=== PATIENT | female | born 1990 | race Caucasian/White ===

== ENCOUNTER 2017-07-11 19:16 | Emergency (ER) | payer OTHER ==
[2017-07-11 19:37] VITALS: BP 127/81; PULSE 85; RESP 16; TEMP 98.5
--- NOTE | 2017-07-11 20:27 | ED ---
General Adult HPI - General Chief complaint: Burn/Smoke Inhalation Stated complaint: Burn on hand and face Time Seen by Provider: 07/11/17 19:44 Source: patient, RN notes reviewed Mode of arrival: ambulatory Limitations: no limitations - History of Present Illness Initial comments: 26-year-old female presents to the emergency department for a chief complaint of burn on right hand and face since last night. Patient states she was at work at [email or web address] when the grease burned her hand and splashed on her face. Patient states blisters started to form today. Patient denies any spreading redness or signs of infection. Patient denies any other freire or injuries. Patient states her tetanus is up-to-date in the past 5 years. Patient has no other complaints at this time including shortness of breath, chest pain, abdominal pain, nausea or vomiting, headache, or visual changes. - Related Data Previous Rx's Medication Instructions Recorded SILVER sulfADIAZINE CREAM 1 applic TOPICAL DAILY 14 Days 07/11/17 [Silvadene Cream] gram Allergies Allergy/AdvReac Type Severity Reaction Status Date / Time No Known Allergies Allergy Verified 07/11/17 19:37 Review of Systems ROS Statement: Those systems with pertinent positive or pertinent negative responses have been documented in the HPI. ROS Other: All systems not noted in ROS Statement are negative. Past Medical History Past Medical History: No Reported History History of Any Multi-Drug Resistant Organisms: None Reported Past Surgical History: No Surgical Hx Reported Past Psychological History: No Psychological Hx Reported Smoking Status: Never smoker Past Alcohol Use History: None Reported Past Drug Use History: None Reported General Exam Limitations: no limitations General appearance: alert, in no apparent distress Neck exam: Present: normal inspection. Absent: tenderness, meningismus, lymphadenopathy Respiratory exam: Present: normal lung sounds bilaterally. Absent: respiratory distress, wheezes, rales, rhonchi, stridor Cardiovascular Exam: Present: regular rate, normal rhythm, normal heart sounds. Absent: systolic murmur, diastolic murmur, rubs, gallop, clicks Skin exam: Present: other (There is a 4 cm x 3 cm erythematous burn on the dorsal aspect of the right hand less than 1% of the body. There is a 2cm x 2cm intact blister over the burn. Patient also has 2 small 1 cm x 1 cm splash seymour on the face (right cheek and chin) with small intact blister over each. No signs of infection, cellulitis, or spreading redness.) Course Vital Signs 07/11/17 19:33 Temperature 98.5 F Pulse Rate 85 Respiratory 16 Rate Blood Pressure 127/81 O2 Sat by Pulse 100 Oximetry Medical Decision Making - Medical Decision Making 26-year-old female presents to the emergency department for a chief complaint of burn on the posterior right hand. Patient was burned with grease yesterday. Patient also has 2 small/hives on her face one on the right cheek and one on the chin with small blisters. No signs of infection. Tetanus up-to-date Wound was debrided and nonviable tissue was removed. It was then cleaned. Silvadene nitrate was applied and patients hand was wrapped. The blisters on the face were also debrided and silvadene was applied. Patient is to monitor for infection and return to the ED if she notices any or any worsening symptoms. She was educated to apply Silvadene daily and to keep the wounds moist to prevent scarring. Disposition Clinical Impression: Burn Disposition: HOME SELF-CARE Condition: Good Instructions: Second Degree Burn (ED) Additional Instructions: Please keep the affected areas on the hand and face moist with Silvadene. Keep the hand wrapped during the day and make sure to clean the area at least once a day. Return to the emergency department if you notice any worsening symptoms or signs of infection. Otherwise follow-up with primary care in 1-2 days. Prescriptions: SILVER sulfADIAZINE CREAM [Silvadene Cream] 1 applic TOPICAL DAILY 14 Days gram Is patient prescribed a controlled substance at d/c from ED?: No Referrals: Edd Cooper MD [STAFF PHYSICIAN] - 1-2 days Time of Disposition: 20:25
== END 2017-07-11 20:40 | disposition home or self-care (01) ==
LOC: EC 19:16
DX: T23.261A Burn of second degree of back of right hand, initial encounter (principal); T20.26XA Burn of second degree of forehead and cheek, initial encounter; T20.23XA Burn of second degree of chin, initial encounter; T31.0 Burns involving less than 10% of body surface; X19.XXXA Contact with other heat and hot substances, initial encounter; Y92.69 Other specified industrial and construction area as the place of occurrence of the external cause; Y99.0 Civilian activity done for income or pay
CPT/HCPCS: 16020; 99283

== ENCOUNTER 2018-06-10 13:42 | Emergency (ER) | payer BC, OTHER ==
[2018-06-10 13:47] VITALS: RESP 18
[2018-06-10] MEDS ORDERED: SODIUM CHLORIDE 0.9% 2,000 ML IV STA (14:02)
[2018-06-10] MEDS ORDERED: ONDANSETRON 4 MG/2 ML VIAL IVP STA (14:02)
[2018-06-10] MEDS ORDERED: diphenhydrAMINE 50 MG/ML 1 ML VIAL IVP STA (14:02)
--- NOTE | 2018-06-10 14:47 | ED ---
Nausea/Vomiting/Diarrhea HPI - General Chief complaint: Nausea/Vomiting/Diarrhea Stated complaint: vomiting/7.5 wks preg Time Seen by Provider: 06/10/18 13:51 Source: patient, RN notes reviewed Mode of arrival: ambulatory Limitations: no limitations - History of Present Illness Initial comments: 27-year-old female presents emergency Department chief complaint of nausea vomiting early . Patient states that she was recently seen at [facility] and received a bag of IV fluids and which she felt better at that time. Patient was not discharged with pain medications or had any recommendations for nausea medication. She has not contacted a [employer] at this time. She is A0 and currently 7 weeks . Patient denies any vagi nal bleeding or vaginal discharge. She has no lower abdominal discomfort. Denies chest pain no fevers or chills. - Related Data Previous Rx's Medication Instructions Recorded SILVER sulfADIAZINE CREAM 1 applic TOPICAL DAILY 14 Days 07/11/17 [Silvadene Cream] gram Ondansetron Odt [Zofran Odt] 4 mg PO Q8HR PRN #14 tab 06/10/18 Allergies Allergy/AdvReac Type Severity Reaction Status Date / Time No Known Allergies Allergy Verified 07/11/17 19:37 Review of Systems ROS Statement: Those systems with pertinent positive or pertinent negative responses have been documented in the HPI. ROS Other: All systems not noted in ROS Statement are negative. Past Medical History Past Medical History: No Reported History History of Any Multi-Drug Resistant Organisms: None Reported Past Surgical History: No Surgical Hx Reported Past Psychological History: No Psychological Hx Reported Smoking Status: Never smoker Past Alcohol Use History: None Reported Past Drug Use History: None Reported General Exam Limitations: no limitations General appearance: alert, in no apparent distress Head exam: Present: atraumatic, normocephalic, normal inspection Eye exam: Present: normal appearance, PERRL, EOMI. Absent: scleral icterus, conjunctival injection, periorbital swelling ENT exam: Present: normal exam, mucous membranes moist Neck exam: Present: normal inspection, full ROM. Absent: tenderness, m eningismus, lymphadenopathy Respiratory exam: Present: normal lung sounds bilaterally. Absent: respiratory distress, wheezes, rales, rhonchi, stridor Cardiovascular Exam: Present: regular rate, normal rhythm, normal heart sounds. Absent: systolic murmur, diastolic murmur, rubs, gallop, clicks GI/Abdominal exam: Present: soft, normal bowel sounds. Absent: distended, tenderness, guarding, rebound, rigid Back exam: Absent: CVA tenderness (R), CVA tenderness (L) Skin exam: Present: warm, dry, intact, normal color. Absent: rash Course Vital Signs 06/10/18 06/10/18 13:44 16:06 Temperature 97.6 F Pulse Rate 96 76 Respiratory 18 18 Rate Blood Pressure 105/68 96/53 O2 Sat by Pulse 98 100 Oximetry Medical Decision Making - Medical Decision Making 27-year-old female presented for nausea vomiting . Patient found to be dehydrated though she was given 2 L of fluid and feels greatly improved. Patient is mildly acidotic this is related from dehydration. Patient is advised to follow-up with [facility]. Patient advised to use [id number] B6 and Unisom. understands risk taking Zofran and requests at this time. Patient will be discharged. Return parameters discussed. - Lab Data Result diagrams: 06/10/18 14:15 06/10/18 14:15 Lab Results 06/10/18 06/10/18 06/10/18 Range/Units 14:15 14:15 16:18 WBC 14.0 H (3.8-10.6) k/uL RBC 4.84 (3.80-5.40) m/uL Hgb 15.2 (11.4-16.0) gm/dL Hct 41.9 (34.0-46.0) % MCV 86.6 (80.0-100.0) fL MCH 31.3 (25.0-35.0) pg MCHC 36.1 (31.0-37.0) g/dL RDW 11.5 (11.5-15.5) % Plt Count 379 (150-450) k/uL Neutrophils % 87 % Lymphocytes % 8 % Monocytes % 4 % Eosinophils % 0 % Basophils % 1 % Neutrophils # 12.1 H (1.3-7.7) k/uL Lymphocytes # 1.2 (1.0-4.8) k/uL Monocytes # 0.5 (0-1.0) k/uL Eosinophils # 0.1 (0-0.7) k/uL Basophils # 0.1 (0-0.2) k/uL Sodium 138 (137-145) mmol/L Potassium 4.1 (3.5-5.1) mmol/L Chloride 103 (98-107) mmol/L Carbon Dioxide 19 L (22-30) mmol/L Anion Gap 16 mmol/L BUN 13 (7-17) mg/dL Creatinine 0.55 (0.52-1.04) mg/dL Est GFR (CKD-EPI)AfAm >90 (>60 ml/min/1.73 sqM) Est GFR (CKD-EPI)NonAf >90 (>60 ml/min/1.73 sqM) Glucose 98 (74-99) mg/dL Calcium 12.0 H (8.4-10.2) mg/dL Magnesium 1.6 (1.6-2.3) mg/dL Total Bilirubin 1.5 H (0.2-1.3) mg/dL AST 18 (14-36) U/L ALT 20 (9-52) U/L Alkaline Phosphatase 56 (38-126) U/L Total Protein 8.6 H (6.3-8.2) g/dL Albumin 5.4 H (3.5-5.0) g/dL Lipase 43 (23-300) U/L HCG, Quant 07504.0 mIU/mL Urine Color Yellow Urine Appearance Cloudy H (Clear) Urine pH 5.5 (5.0-8.0) Ur Specific [place] 1.029 (1.001-1.035) Urine Protein 1+ H (Negative) Urine Glucose (UA) Negative (Negative) Urine Ketones 4+ H (Negative) Urine Blood Negative (Negative) Urine Nitrite Negative (Negative) Urine Bilirubin Negative (Negative) Urine Urobilinogen <2.0 (<2.0) mg/dL Ur Leukocyte Esterase Negative (Negative) Urine RBC 2 (0-5) /hpf Urine WBC 6 H (0-5) /hpf Ur Squamous Epith Cells 1 (0-4) /hpf Urine Mucus Many H (None) /hpf Disposition Clinical Impression: Hyperemesis gravidarum, Dehydration, Disposition: HOME SELF-CARE Condition: Stable Instructions (If sedation given, give patient instructions): Nausea and Vomiting in (ED) Additional Instructions: Please return to the Emergency Department if symptoms worsen or any other concerns. Prescriptions: Ondansetron Odt [Zofran Odt] 4 mg PO Q8HR PRN #14 tab PRN Reason: Nausea Is patient prescribed a controlled substance at d/c from ED?: No Referrals: None,Stated [Primary Care Provider] - 1-2 days Time of Disposition: 16:44
[2018-06-10 15:15] LABS: ALT 20 U/L (9-52); AST 18 U/L (14-36); Albumin 5.4 g/dL (3.5-5.0); Alkaline Phosphatase 56 U/L (38-126); Anion Gap 16 mmol/L; Blood Urea Nitrogen 13 mg/dL (7-17); Carbon Dioxide 19 mmol/L (22-30); Chloride 103 mmol/L (98-107); Glucose 98 mg/dL (74-99); Lipase 43 U/L (23-300); Magnesium 1.6 mg/dL (1.6-2.3); Potassium 4.1 mmol/L (3.5-5.1); Sodium 138 mmol/L (137-145); Total Bilirubin 1.5 mg/dL (0.2-1.3); Total Protein 8.6 g/dL (6.3-8.2)
[2018-06-10 15:22] LABS: Basophils # (A) 0.1 k/uL (0-0.2); Basophils % (A) 1 %; Eosinophils # (A) 0.1 k/uL (0-0.7); Eosinophils % (A) 0 %; HCT 41.9 % (34.0-46.0); HGB 15.2 gm/dL (11.4-16.0); Lymphocytes # (A) 1.2 k/uL (1.0-4.8); Lymphocytes % (A) 8 %; MCH 31.3 pg (25.0-35.0); MCHC 36.1 g/dL (31.0-37.0); MCV 86.6 fL (80.0-100.0); Monocytes # (A) 0.5 k/uL (0-1.0); Monocytes % (A) 4 %; Neutrophils # (A) 12.1 k/uL (1.3-7.7); Neutrophils % (A) 87 %; Platelet Count 379 k/uL (150-450); RBC 4.84 m/uL (3.80-5.40); RDW 11.5 % (11.5-15.5)
[2018-06-10 16:31] LABS: Appearance,Urine Cloudy (Clear); Bilirubin,Urine Negative (Negative); Blood,Urine Negative (Negative); Color,Urine Yellow; Glucose,Urine (UA) Negative (Negative); Ketones,Urine 4+ (Negative); Leukocyte Esterase,Urine Negative (Negative); Mucus,Urine Many /hpf; Nitrite,Urine Negative (Negative); PH, Urine 5.5 (5.0-8.0); Protein,Urine 1+ (Negative); RBC,Urine 2 /hpf (0-5); Specific Gravity,Urine 1.029 (1.001-1.035); Squamous Epithelial Cell,Urine 1 /hpf (0-4); Urobilinogen,Urine <2.0 mg/dL (<2.0); WBC,Urine 6 /hpf (0-5)
[2018-06-10] MEDS ORDERED: ONDANSETRON 4 MG ODT STARTER PACK 2 TAB BTL PO STA (16:43)
[2018-06-10 17:03] VITALS: BP 103/59; PULSE 69; TEMP 97.8
== END 2018-06-10 17:03 | disposition home or self-care (01) ==
LOC: EC 13:42
DX: O21.1 Hyperemesis gravidarum with metabolic disturbance (principal); Z3A.01 Less than 8 weeks gestation of pregnancy
CPT/HCPCS: 36415; 80053; 83690; 83735; 85025; 81001; 84702; 99284; 96374; 96375; 96361 ×2; J1200; J2405; S0119

== ENCOUNTER 2018-06-14 16:21 | Emergency (ER) | payer BC ==
[2018-06-14 16:43] VITALS: TEMP 98.9
[2018-06-14] MEDS ORDERED: SODIUM CHLORIDE 0.9% 1,000 ML IV STA ×3 (16:47→18:28)
[2018-06-14] MEDS ORDERED: diphenhydrAMINE 50 MG/ML 1 ML VIAL IVP STA (16:47)
[2018-06-14] MEDS ORDERED: SODIUM CHLORIDE 0.9% 500 ML 500 ML IV STA (16:47)
--- NOTE | 2018-06-14 16:47 | ED ---
Nausea/Vomiting/Diarrhea HPI - General Chief complaint: Nausea/Vomiting/Diarrhea Stated complaint: Dehydration Source: patient, family, RN notes reviewed, old records reviewed Mode of arrival: wheelchair Limitations: no limitations - Related Data Previous Rx's Medication Instructions Recorded Ondansetron Odt [Zofran Odt] 4 mg PO Q8HR PRN #14 tab 06/10/18 Trimethobenzamide [Tigan] 300 mg RECTAL TID #90 capsule 06/14/18 Allergies Allergy/AdvReac Type Severity Reaction Status Date / Time No Known Allergies Allergy Verified 06/14/18 16:50 Review of Systems ROS Statement: Those systems with pertinent positive or pertinent negative responses have been documented in the HPI. ROS Other: All systems not noted in ROS Statement are negative. Past Medical History Past Medical History: No Reported History History of Any Multi-Drug Resistant Organisms: None Reported Past Surgical History: No Surgical Hx Reported Past Psychological History: No Psychological Hx Reported Smoking Status: Never smoker Past Alcohol Use History: None Reported Past Drug Use History: None Reported General Exam Limitations: no limitations General appearance: alert, in no apparent distress Head exam: Present: atraumatic, normocephalic, normal inspection Eye exam: Present: normal appearance, PERRL, EOMI. Absent: scleral icterus, conjunctival injection, periorbital swelling ENT exam: Present: normal exam, mucous membranes moist Neck exam: Present: normal inspection. Absent: tenderness, meningismus, lymphadenopathy Respiratory exam: Present: normal lung sounds bilaterally. Absent: respiratory distress, wheezes, rales, rhonchi, stridor Cardiovascular Exam: Present: regular rate, normal rhythm, normal heart sounds. Absent: systolic murmur, diastolic murmur, rubs, gallop, clicks GI/Abdominal exam: Present: soft, normal bowel sounds. Absent: distended, tenderness, guarding, rebound, rigid Extremities exam: Present: normal inspection, full ROM, normal capillary refill. Absent: tenderness, pedal edema, joint swelling, calf tenderness Back exam: Present: normal inspection Neurological exam: Present: alert, oriented X3, CN II-XII intact Psychiatric exam: Present: normal affect, normal mood Skin exam: Present: warm, dry, intact, normal color. Absent: rash Course Vital Signs 06/14/18 06/14/18 16:40 20:26 Temperature 98.9 F Pulse Rate 89 76 Respiratory 18 16 Rate Blood Pressure 101/70 104/66 O2 Sat by Pulse 100 97 Oximetry - Reevaluation(s) Reevaluation #1: 06/14/18 20:34 Medical record reviewed Reevaluation #2: 06/14/18 20:[address] Martinez, patient okay to follow up in office as directed, we'll continue outpatient treatment of hyperemesis Reevaluation #3: 06/14/18 20:35 Patient mildly feeling improved Medical Decision Making - Medical Decision Making 27 female the ER with hyperemesis gravidarum. Patient will be placed on Tigan per direction of Dr. Chou, follow-up with Dr. parra as directed - Lab Data Result diagrams: 06/14/18 17:11 06/14/18 17:11 Lab Results 06/14/18 06/14/18 06/14/18 Range/Units 17:11 17:11 17:11 WBC 13.8 H (3.8-10.6) k/uL RBC 4.70 (3.80-5.40) m/uL Hgb 14.5 (11.4-16.0) gm/dL Hct 40.2 (34.0-46.0) % MCV 85.5 (80.0-100.0) fL MCH 30.8 (25.0-35.0) pg MCHC 36.1 (31.0-37.0) g/dL RDW 11.4 L (11.5-15.5) % Plt Count 395 (150-450) k/uL Neutrophils % 85 % Lymphocytes % 9 % Monocytes % 4 % Eosinophils % 1 % Basophils % 1 % Neutrophils # 11.7 H (1.3-7.7) k/uL Lymphocytes # 1.2 (1.0-4.8) k/uL Monocytes # 0.5 (0-1.0) k/uL Eosinophils # 0.1 (0-0.7) k/uL Basophils # 0.1 (0-0.2) k/uL Hyperchromasia Slight Sodium 137 (137-145) mmol/L Potassium 4.1 (3.5-5.1) mmol/L Chloride 101 (98-107) mmol/L Carbon Dioxide 19 L (22-30) mmol/L Anion Gap 17 mmol/L BUN 11 (7-17) mg/dL Creatinine 0.56 (0.52-1.04) mg/dL Est GFR (CKD-EPI)AfAm >90 (>60 ml/min/1.73 sqM) Est GFR (CKD-EPI)NonAf >90 (>60 ml/min/1.73 sqM) Glucose 91 (74-99) mg/dL Calcium 12.3 H (8.4-10.2) mg/dL Phosphorus 2.6 (2.5-4.5) mg/dL Magnesium 1.7 (1.6-2.3) mg/dL Total Bilirubin 1.5 H (0.2-1.3) mg/dL AST 16 (14-36) U/L ALT 24 (9-52) U/L Alkaline Phosphatase 57 (38-126) U/L Total Protein 8.6 H (6.3-8.2) g/dL Albumin 5.4 H (3.5-5.0) g/dL Lipase 50 (23-300) U/L HCG, Qual Detected Urine Color Urine Appearance (Clear) Urine pH (5.0-8.0) Ur Specific [place] (1.001-1.035) Urine Protein (Negative) Urine Glucose (UA) (Negative) Urine Ketones (Negative) Urine Blood (Negative) Urine Nitrite (Negative) Urine Bilirubin (Negative) Urine Urobilinogen (<2.0) mg/dL Ur Leukocyte Esterase (Negative) Urine RBC (0-5) /hpf Urine WBC (0-5) /hpf Ur Squamous Epith Cells (0-4) /hpf Hyaline Casts (0-2) /lpf Urine Mucus (None) /hpf 06/14/18 Range/Units 19:23 WBC (3.8-10.6) k/uL RBC (3.80-5.40) m/uL Hgb (11.4-16.0) gm/dL Hct (34.0-46.0) % MCV (80.0-100.0) fL MCH (25.0-35.0) pg MCHC (31.0-37.0) g/dL RDW (11.5-15.5) % Plt Count (150-450) k/uL Neutrophils % % Lymphocytes % % Monocytes % % Eosinophils % % Basophils % % Neutrophils # (1.3-7.7) k/uL Lymphocytes # (1.0-4.8) k/uL Monocytes # (0-1.0) k/uL Eosinophils # (0-0.7) k/uL Basophils # (0-0.2) k/uL Hyperchromasia Sodium (137-145) mmol/L Potassium (3.5-5.1) mmol/L Chloride (98-107) mmol/L Carbon Dioxide (22-30) mmol/L Anion Gap mmol/L BUN (7-17) mg/dL Creatinine (0.52-1.04) mg/dL Est GFR (CKD-EPI)AfAm (>60 ml/min/1.73 sqM) Est GFR (CKD-EPI)NonAf (>60 ml/min/1.73 sqM) Glucose (74-99) mg/dL Calcium (8.4-10.2) mg/dL Phosphorus (2.5-4.5) mg/dL Magnesium (1.6-2.3) mg/dL Total Bilirubin (0.2-1.3) mg/dL AST (14-36) U/L ALT (9-52) U/L Alkaline Phosphatase (38-126) U/L Total Protein (6.3-8.2) g/dL Albumin (3.5-5.0) g/dL Lipase (23-300) U/L HCG, Qual Urine Color Yellow Urine Appearance Clear (Clear) Urine pH 5.5 (5.0-8.0) Ur Specific [place] 1.031 (1.001-1.035) Urine Protein 1+ H (Negative) Urine Glucose (UA) Negative (Negative) Urine Ketones 4+ H (Negative) Urine Blood Negative (Negative) Urine Nitrite Negative (Negative) Urine Bilirubin Negative (Negative) Urine Urobilinogen <2.0 (<2.0) mg/dL Ur Leukocyte Esterase Small H (Negative) Urine RBC 2 (0-5) /hpf Urine WBC 3 (0-5) /hpf Ur Squamous Epith Cells 4 (0-4) /hpf Hyaline Casts 3 H (0-2) /lpf Urine Mucus Few H (None) /hpf Disposition Clinical Impression: Hyperemesis gravidarum Disposition: HOME SELF-CARE Condition: Good Instructions (If sedation given, give patient instructions): Hyperemesis Gravidarum (ED) Prescriptions: Trimethobenzamide [Tigan] 300 mg RECTAL TID #90 capsule Is patient prescribed a controlled substance at d/c from ED?: No Referrals: None,Stated [Primary Care Provider] - 1-2 days
[2018-06-14] MEDS ORDERED: PYRIDOXINE 100 MG/ML 1 ML VIAL IVP STA (16:48)
[2018-06-14 17:25] LABS: Basophils # (A) 0.1 k/uL (0-0.2); Basophils % (A) 1 %; Eosinophils # (A) 0.1 k/uL (0-0.7); Eosinophils % (A) 1 %; HCT 40.2 % (34.0-46.0); HGB 14.5 gm/dL (11.4-16.0); Hyperchromasia Slight; Lymphocytes # (A) 1.2 k/uL (1.0-4.8); Lymphocytes % (A) 9 %; MCH 30.8 pg (25.0-35.0); MCHC 36.1 g/dL (31.0-37.0); MCV 85.5 fL (80.0-100.0); Mean Platelet Volume 6.5; Monocytes # (A) 0.5 k/uL (0-1.0); Monocytes % (A) 4 %; Neutrophils # (A) 11.7 k/uL (1.3-7.7); Neutrophils % (A) 85 %; Platelet Count 395 k/uL (150-450); RDW 11.4 % (11.5-15.5); WBC 13.8 k/uL (3.8-10.6)
[2018-06-14 17:35] LABS: ALT 24 U/L (9-52); AST 16 U/L (14-36); Albumin 5.4 g/dL (3.5-5.0); Alkaline Phosphatase 57 U/L (38-126); Anion Gap 17 mmol/L; Blood Urea Nitrogen 11 mg/dL (7-17); Calcium 12.3 mg/dL (8.4-10.2); Carbon Dioxide 19 mmol/L (22-30); Chloride 101 mmol/L (98-107); Glucose 91 mg/dL (74-99); Lipase 50 U/L (23-300); Magnesium 1.7 mg/dL (1.6-2.3); Phosphorus 2.6 mg/dL (2.5-4.5); Potassium 4.1 mmol/L (3.5-5.1); Sodium 137 mmol/L (137-145); Total Bilirubin 1.5 mg/dL (0.2-1.3); Total Protein 8.6 g/dL (6.3-8.2)
[2018-06-14] MEDS ORDERED: METOCLOPRAMIDE 5 MG/ML 2 ML VIAL IVP STA (18:28)
[2018-06-14] MEDS ORDERED: ONDANSETRON 4 MG/2 ML VIAL IVP STA (18:28)
[2018-06-14 19:31] LABS: Appearance,Urine Clear (Clear); Bilirubin,Urine Negative (Negative); Blood,Urine Negative (Negative); Color,Urine Yellow; Glucose,Urine (UA) Negative (Negative); Hyaline Casts,Urine 3 /lpf (0-2); Ketones,Urine 4+ (Negative); Leukocyte Esterase,Urine Small (Negative); Mucus,Urine Few /hpf; Nitrite,Urine Negative (Negative); PH, Urine 5.5 (5.0-8.0); Protein,Urine 1+ (Negative); RBC,Urine 2 /hpf (0-5); Specific Gravity,Urine 1.031 (1.001-1.035); Squamous Epithelial Cell,Urine 4 /hpf (0-4); Urobilinogen,Urine <2.0 mg/dL (<2.0)
[2018-06-14] MEDS ORDERED: DEXTROSE 5%-0.45% NACL 1,000 ML IV ONE (19:51)
[2018-06-14] MEDS ORDERED: TRIMETHOBENZAMIDE 100 MG/ML 2 ML VIAL IM STA (20:02)
[2018-06-14] MEDS ORDERED: DEXTROSE 5%-LACTATED RINGERS 1,000 ML IV SCH (20:15)
[2018-06-14 20:27] VITALS: BP 104/66; PULSE 76; RESP 16
[2018-06-14] MEDS ORDERED: LACTATED RINGERS 1,000 ML IV SCH (20:45)
--- NOTE | 2018-06-14 21:28 | US ---
EXAMINATION TYPE: Transabdominal DATE OF EXAM: 06/14/2018 9:16 PM COMPARISON: NONE CLINICAL HISTORY: Pain. Hyperemesis EXAM PERFORMED: Transabdominal (TA) EXAM MEASUREMENTS: GESTATIONAL AGE / DATING Physician Established: (7 weeks/6 days) EDC: 01/25/2019 Dates by LMP: (7 weeks/6 days) EDC: 01/25/2019 Dates by First Scan: No previous this is first Dates by Current Scan for: (7 weeks/1 days) EDC: 01/30/2019 MATERNAL ANATOMY Uterus: 8.9 x 4.8 x 5.4 cm Right Ovary: 3.4 x 1.8 x 2.4 cm Left Ovary: 2.4 x 1.7 x 1.4 cm Post CDS / Adnexa: wnl Presence of free fluid: no Presence of corpus luteal cyst: Yes right ovary 1.1 x 1.3 x .9cm. Presence of subchorionic bleed: No GESTATION / SURVEY CRL: 1.08cm (7 weeks/1 days) Yolk Sac (normal less than 6mm): 3mm Heart Rate: 165 bpm Rhythm: Normal IUP: Viable IUP Beta HcG (if available): Not available at this time IMPRESSION: The ultrasound gestational age is 7 weeks and 1 day. No complicating process seen.
== END 2018-06-14 22:47 | disposition home or self-care (01) ==
LOC: EC 16:21
DX: O21.1 Hyperemesis gravidarum with metabolic disturbance (principal); Z3A.01 Less than 8 weeks gestation of pregnancy
CPT/HCPCS: 36415; 80053; 83690; 83735; 84100; 85025; 81001; 84703; 76801; 99284; 96374; 96375 ×3; 96361 ×5; 96372; J1200; J3415; J2765; J3250; J2405

== ENCOUNTER 2018-06-22 22:54 | Emergency (ER) | payer BC ==
[2018-06-22 23:05] VITALS: TEMP 98.6
[2018-06-22] MEDS ORDERED: diphenhydrAMINE 50 MG/ML 1 ML VIAL IVP STA (23:12)
[2018-06-22] MEDS ORDERED: METOCLOPRAMIDE 5 MG/ML 2 ML VIAL IVP STA (23:12)
[2018-06-22] MEDS ORDERED: SODIUM CHLORIDE 0.9% 1,000 ML IV STA (23:12)
[2018-06-22] MEDS ORDERED: DEXTROSE 5% IN WATER 1,000 ML IV STA (23:12)
[2018-06-23 00:03] LABS: Basophils # (A) 0.1 k/uL (0-0.2); Basophils % (A) 1 %; Eosinophils # (A) 0.1 k/uL (0-0.7); Eosinophils % (A) 1 %; HGB 13.6 gm/dL (11.4-16.0); Hyperchromasia Slight; Lymphocytes # (A) 1.7 k/uL (1.0-4.8); Lymphocytes % (A) 14 %; MCH 30.4 pg (25.0-35.0); MCHC 35.9 g/dL (31.0-37.0); MCV 84.8 fL (80.0-100.0); Mean Platelet Volume 6.2; Monocytes # (A) 0.7 k/uL (0-1.0); Monocytes % (A) 6 %; Neutrophils # (A) 9.4 k/uL (1.3-7.7); Neutrophils % (A) 77 %; Platelet Count 363 k/uL (150-450); RBC 4.48 m/uL (3.80-5.40); RDW 11.7 % (11.5-15.5); WBC 12.2 k/uL (3.8-10.6)
[2018-06-23 00:16] LABS: Amylase 45 U/L (30-110); Anion Gap 13 mmol/L; Blood Urea Nitrogen 9 mg/dL (7-17); Calcium 12.2 mg/dL (8.4-10.2); Carbon Dioxide 24 mmol/L (22-30); Chloride 97 mmol/L (98-107); Glucose 83 mg/dL (74-99); Lipase 53 U/L (23-300); Sodium 134 mmol/L (137-145); Total Bilirubin 1.3 mg/dL (0.2-1.3); Total Protein 7.9 g/dL (6.3-8.2)
[2018-06-23 00:24] LABS: Potassium 4.1 mmol/L (3.5-5.1)
[2018-06-23 00:25] LABS: ALT 14 U/L (9-52); AST 21 U/L (14-36); Alkaline Phosphatase 41 U/L (38-126)
--- NOTE | 2018-06-23 01:00 | ED ---
General Adult HPI - General Source: patient Mode of arrival: ambulatory Limitations: no limitations <Yvette Martinez - Last Filed: 06/23/18 01:52> <Karen Amezquita - Last Filed: 06/23/18 03:10> - General Chief complaint: Nausea/Vomiting/Diarrhea Stated complaint: 9 weeks Hyperemesis Time Seen by Provider: 06/22/18 23:06 - History of Present Illness Initial comments: 27-year-old female patient who is 9 weeks presents to the emergency department today for evaluation of vomiting. Patient has been dealing with hyperemesis gravidarum throughout . Patient states that she has been vomiting nonstop for the last 2 days. States that she's been unable to keep down any food or fluids. She denies any abdominal pain, abnormal vaginal bleeding, or abnormal discharge with this. Denies any constipation or diarrhea. Denies any fever or chills. Denies any recent travel or sick contacts. Pat ient states she was given 4 different medications for nausea but is unable to keep them down. Patient denies taking any medication for nausea today. Patient does seek treatment with Dr. orr for obstetric care. She is . She has had ultrasound confirming intrauterine one week ago. Patient denies any recent rash, shortness breath, chest pain, back pain, numbness, tingling, dizziness, weakness, hematuria, dysuria, urinary urgency, urinary frequency, headache, visual changes, or any other complaints. (Yvette Martinez) - Related Data Home Medications Medication Instructions Recorded Confirmed Trimethobenzamide [Tigan] 300 mg RECTAL TID PRN 06/22/18 06/22/18 Previous Rx's Medication Instructions Recorded Ondansetron Odt [Zofran Odt] 4 mg PO Q8HR PRN #14 tab 06/10/18 Cephalexin [Keflex] 500 mg PO Q6HR 3 Days #12 cap 06/23/18 Allergies Allergy/AdvReac Type Severity Reaction Status Date / Time No Known Allergies Allergy Verified 06/22/18 23:17 Review of Systems ROS Other: All systems not noted in ROS Statement are negative. <Yvette Martinez - Last Filed: 06/23/18 01:52> ROS Other: All systems not noted in ROS Statement are negative. <Karen Amezquita - Last Filed: 06/23/18 03:10> ROS Statement: Those systems with pertinent positive or pertinent negative responses have been documented in the HPI. Past Medical History Past Medical History: No Reported History History of Any Multi-Drug Resistant Organisms: None Reported Past Surgical History: No Surgical Hx Reported Past Psychological History: No Psychological Hx Reported Smoking Status: Never smoker Past Alcohol Use History: None Reported Past Drug Use History: None Reported <Yvette Martinez - Last Filed: 06/23/18 01:52> General Exam Limitations: no limitations General appearance: alert, in no apparent distress, other (Physical well- developed, well-nourished adult female patient in no acute distress. Vital signs upon presentation are temperature 98.6F, pulse 96, respirations 18, blood pressure 110/77, pulse ox 100% on room air.) Eye exam: Present: normal appearance, PERRL, EOMI. Absent: scleral icterus, conjunctival injection, periorbital swelling ENT exam: Present: normal exam, normal oropharynx, mucous membranes moist Respiratory exam: Present: normal lung sounds bilaterally. Absent: respiratory distress, wheezes, rales, rhonchi, stridor Cardiovascular Exam: Present: regular rate, normal rhythm, normal heart sounds. Absent: systolic murmur, diastolic murmur, rubs, gallop, clicks GI/Abdominal exam: Present: soft, normal bowel sounds. Absent: distended, tenderness, guarding, rebound, rigid Back exam: Present: normal inspection. Absent: CVA tenderness (R), CVA tenderness (L) Neurological exam: Present: alert, oriented X3, CN II-XII intact Psychiatric exam: Present: normal affect, normal mood Skin exam: Present: warm, dry, intact, normal color. Absent: rash <Yvette Martinez M - Last Filed: 06/23/18 01:52> Course Vital Signs 06/22/18 06/23/18 23:02 01:12 Temperature 98.6 F Pulse Rate 96 50 L Respiratory 18 17 Rate Blood Pressure 110/77 110/73 O2 Sat by Pulse 100 99 Oximetry Medical Decision Making - Lab Data Result diagrams: 06/22/18 23:45 06/22/18 23:45 <Yvette Martinez - Last Filed: 06/23/18 01:52> - Lab Data Result diagrams: 06/22/18 23:45 06/22/18 23:45 <Karen Amezquita - Last Filed: 06/23/18 03:10> - Medical Decision Making 27-year-old female patient who is 9 weeks presents the emergency department today with nausea and vomiting. Patient has been diagnosed with hyperemesis gravidarum. Physical examination is unremarkable. Abdomen is soft and nontender. She is afebrile. Vital signs are stable. Labs reviewed and were unremarkable. Urinalysis did show presence of bacteria and white blood cells and did send this for culture but also treat for asymptomatic bacteriuria. We did perform ultrasound the emergency department, cardiac activity was witnessed. She'll be discharged home at this time to follow-up with her CLEARANCE COORDINATOR for recheck on Monday. Return parameters were discussed in detail. She verbalizes understanding and agrees with this plan. (Yvette Martinez) I personally saw and evaluated the patient. I performed a bedside ultrasound. We did see intrauterine gestational sac and were able to identify heartbeat. She was in no acute distress received IV fluids and was discharged home. (Karen Amezquita) - Lab Data Lab Results 06/22/18 06/22/18 06/23/18 Range/Units 23:45 23:45 00:42 WBC 12.2 H (3.8-10.6) k/uL RBC 4.48 (3.80-5.40) m/uL Hgb 13.6 (11.4-16.0) gm/dL Hct 38.0 (34.0-46.0) % MCV 84.8 (80.0-100.0) fL MCH 30.4 (25.0-35.0) pg MCHC 35.9 (31.0-37.0) g/dL RDW 11.7 (11.5-15.5) % Plt Count 363 (150-450) k/uL Neutrophils % 77 % Lymphocytes % 14 % Monocytes % 6 % Eosinophils % 1 % Basophils % 1 % Neutrophils # 9.4 H (1.3-7.7) k/uL Lymphocytes # 1.7 (1.0-4.8) k/uL Monocytes # 0.7 (0-1.0) k/uL Eosinophils # 0.1 (0-0.7) k/uL Basophils # 0.1 (0-0.2) k/uL Hyperchromasia Slight Sodium 134 L (137-145) mmol/L Potassium 4.1 (3.5-5.1) mmol/L Chloride 97 L (98-107) mmol/L Carbon Dioxide 24 (22-30) mmol/L Anion Gap 13 mmol/L BUN 9 (7-17) mg/dL Creatinine 0.48 L (0.52-1.04) mg/dL Est GFR (CKD-EPI)AfAm >90 (>60 ml/min/1.73 sqM) Est GFR (CKD-EPI)NonAf >90 (>60 ml/min/1.73 sqM) Glucose 83 (74-99) mg/dL Calcium 12.2 H (8.4-10.2) mg/dL Total Bilirubin 1.3 (0.2-1.3) mg/dL AST 21 (14-36) U/L ALT 14 (9-52) U/L Alkaline Phosphatase 41 (38-126) U/L Total Protein 7.9 (6.3-8.2) g/dL Albumin 5.0 (3.5-5.0) g/dL Amylase 45 (30-110) U/L Lipase 53 (23-300) U/L Urine Color Yellow Urine Appearance Cloudy H (Clear) Urine pH 5.5 (5.0-8.0) Ur Specific [place] 1.024 (1.001-1.035) Urine Protein 1+ H (Negative) Urine Glucose (UA) Negative (Negative) Urine Ketones 3+ H (Negative) Urine Blood Negative (Negative) Urine Nitrite Negative (Negative) Urine Bilirubin Negative (Negative) Urine Urobilinogen <2.0 (<2.0) mg/dL Ur Leukocyte Esterase Moderate H (Negative) Urine RBC 5 (0-5) /hpf Urine WBC 16 H (0-5) /hpf Ur Squamous Epith Cells 10 H (0-4) /hpf Urine Bacteria Rare H (None) /hpf Urine Mucus Many H (None) /hpf Disposition Is patient prescribed a controlled substance at d/c from ED?: No Time of Disposition: 01:46 <Yvette Martinez - Last Filed: 06/23/18 01:52> <Karen Amezquita - Last Filed: 06/23/18 03:10> Clinical Impression: Hyperemesis gravidarum Disposition: HOME SELF-CARE Condition: Good Instructions (If sedation given, give patient instructions): Hyperemesis Gravidarum (ED), Urinary Tract Infection in Women (ED) Additional Instructions: Start with clear liquid diet and advance as tolerated. Eat small frequent yennifer ls. Take medications as directed. Follow-up with your CLEARANCE COORDINATOR for recheck in 1- 2 days. Return to the emergency department immediately for any new, worsening, or concerning symptoms. Prescriptions: Cephalexin [Keflex] 500 mg PO Q6HR 3 Days #12 cap Referrals: None,Stated [Primary Care Provider] - 1-2 days
[2018-06-23 01:13] VITALS: BP 110/73; PULSE 50; RESP 17
[2018-06-23 01:17] LABS: Appearance,Urine Cloudy (Clear); Bacteria,Urine Rare /hpf; Bilirubin,Urine Negative (Negative); Blood,Urine Negative (Negative); Color,Urine Yellow; Glucose,Urine (UA) Negative (Negative); Ketones,Urine 3+ (Negative); Leukocyte Esterase,Urine Moderate (Negative); Mucus,Urine Many /hpf; Nitrite,Urine Negative (Negative); PH, Urine 5.5 (5.0-8.0); Protein,Urine 1+ (Negative); RBC,Urine 5 /hpf (0-5); Specific Gravity,Urine 1.024 (1.001-1.035); Squamous Epithelial Cell,Urine 10 /hpf (0-4); Urobilinogen,Urine <2.0 mg/dL (<2.0); WBC,Urine 16 /hpf (0-5)
[2018-06-23] MEDS ORDERED: cefTRIAXone IN SWFI 1,000 MG/10 ML SYRINGE IVP STA (01:42)
== END 2018-06-23 02:20 | disposition home or self-care (01) ==
LOC: EC 22:54
DX: O21.0 Mild hyperemesis gravidarum (principal); O99.89 Other specified diseases and conditions complicating pregnancy, childbirth and the puerperium; R82.71 Bacteriuria; Z3A.09 9 weeks gestation of pregnancy
CPT/HCPCS: 36415; 80053; 82150; 83690; 85025; 81001; 84702; 87086; 99284; 96374; 96375 ×2; 96361 ×3; J1200; J2765; J0696

== ENCOUNTER 2018-07-27 13:24 | Emergency (ER) | payer BC ==
[2018-07-27] MEDS ORDERED: SODIUM CHLORIDE 0.9% 1,000 ML IV ONE ×2 (13:59→16:41)
[2018-07-27] MEDS ORDERED: SODIUM CHLORIDE 0.9% 500 ML 500 ML IV ONE (13:59)
[2018-07-27] MEDS ORDERED: METOCLOPRAMIDE 5 MG/ML 2 ML VIAL IVP STA (13:59)
[2018-07-27] MEDS ORDERED: PYRIDOXINE 100 MG/ML 1 ML VIAL IVP STA (14:00)
[2018-07-27 14:23] LABS: Basophils % (A) 0 %; Eosinophils % (A) 0 %; HCT 37.6 % (34.0-46.0); HGB 13.2 gm/dL (11.4-16.0); Lymphocytes # (A) 1.1 k/uL (1.0-4.8); Lymphocytes % (A) 6 %; MCH 30.5 pg (25.0-35.0); MCHC 35.1 g/dL (31.0-37.0); MCV 86.8 fL (80.0-100.0); Mean Platelet Volume 6.5; Monocytes # (A) 0.6 k/uL (0-1.0); Monocytes % (A) 3 %; Neutrophils # (A) 14.8 k/uL (1.3-7.7); Neutrophils % (A) 89 %; Platelet Count 418 k/uL (150-450); RBC 4.34 m/uL (3.80-5.40); RDW 12.3 % (11.5-15.5); WBC 16.6 k/uL (3.8-10.6)
[2018-07-27 14:32] LABS: ALT 16 U/L (9-52); AST 15 U/L (14-36); African American GFR (CKD) >90 (>60 ml/min/1.73 sqM); Albumin 4.8 g/dL (3.5-5.0); Alkaline Phosphatase 51 U/L (38-126); Anion Gap 12 mmol/L; Blood Urea Nitrogen 7 mg/dL (7-17); Carbon Dioxide 23 mmol/L (22-30); Chloride 105 mmol/L (98-107); Glucose 97 mg/dL (74-99); Potassium 3.9 mmol/L (3.5-5.1); Sodium 140 mmol/L (137-145); Total Bilirubin 0.9 mg/dL (0.2-1.3); Total Protein 7.8 g/dL (6.3-8.2)
--- NOTE | 2018-07-27 15:21 | ED ---
Nausea/Vomiting/Diarrhea HPI - General Chief complaint: Nausea/Vomiting/Diarrhea Stated complaint: Vomiting, 14 weeks Time Seen by Provider: 07/27/18 13:49 Source: patient, family Mode of arrival: ambulatory Limitations: no limitations - History of Present Illness Initial comments: 47-year-old female 14 weeks presenting today for chief complaint of vomiting. Patient states she has had hyperemesis throughout her . She states she has presents emergency Department total of 5 times for IV hydration. Patient states the past for 4 hours she has not been able to keep down liquids or solids. Patient states she did take her ODT Zofran last night which did not seem to help. Patient presented for symptom medical treat ment and IV hydration. Patient denies any abdominal cramping hematemesis she denies any vaginal bleeding or any other complaints. Remaining review of systems negative. Upon arrival patient appears well no signs of acute distress. Patient did have an episode of emesis in the waiting room. - Related Data Home Medications Medication Instructions Recorded Confirmed Trimethobenzamide [Tigan] 300 mg RECTAL TID PRN 06/22/18 06/22/18 Previous Rx's Medication Instructions Recorded Ondansetron Odt [Zofran Odt] 4 mg PO Q8HR PRN #14 tab 06/10/18 Cephalexin [Keflex] 500 mg PO Q6HR 3 Days #12 cap 06/23/18 Allergies Allergy/AdvReac Type Severity Reaction Status Date / Time No Known Allergies Allergy Verified 07/27/18 13:42 Review of Systems ROS Statement: Those systems with pertinent positive or pertinent negative responses have been documented in the HPI. ROS Other: All systems not noted in ROS Statement are negative. Past Medical History Past Medical History: No Reported History History of Any Multi-Drug Resistant Organisms: None Reported Past Surgical History: No Surgical Hx Reported Past Psychological History: No Psychological Hx Reported Smoking Status: Never smoker Past Alcohol Use History: None Reported Past Drug Use History: None Reported General Exam - General Exam Comments Initial Comments: General: The patient is awake and alert, in no distress Eye: Pupils are equal, round and reactive to light, extra-ocular movements are intact. No nystagmus. There is normal conjunctiva bilaterally. No signs of icterus. Cardiovascular: There is a regular rate and rhythm. No murmur, rub or gallop is appreciated. Respiratory: Lungs are clear to auscultation, respirations are non-labored, breath sounds are equal. No wheezes, stridor, rales, or rhonchi. Gastrointestinal: Soft, non-distended, non-tender abdomen without masses or organomegaly noted. There is no rebound or guarding present. No CVA tenderness. Bowel sounds are unremarkable. Musculoskeletal: Normal ROM, no tenderness. Strength 5/5. Sensation intact. Pulses equal bilaterally 2+. Neurological: A&O x 3. CN II-XII intact, There are no obvious motor or sensory deficits. Coordination appears grossly intact. Speech is normal. Skin: Skin is warm and dry and no rashes or lesions are noted. Psychiatric: Cooperative, appropriate mood & affect, normal judgment. Limitations: no limitations Course Vital Signs 07/27/18 07/27/18 13:39 18:15 Temperature 98.5 F 98 F Pulse Rate 94 87 Respiratory 18 20 Rate Blood Pressure 110/76 107/72 O2 Sat by Pulse 99 100 Oximetry - Reevaluation(s) Reevaluation #1: On reevaluation patient states that she is feeling better like to go home. No episodes of emesis within the emergency department. 07/27/18 18:37 Medical Decision Making - Medical Decision Making 27-year-old female presenting for vomiting and . Patient presented presents back treatment. Patient had plus for ketones on urinalysis. Otherwise no significant electrolyte derangements, mildly elevated calcium. Leukocytosis, most likely reactive. Patient provided Reglan, B6 and Zofran emergency department. Patient states this helped alleviate symptoms. In addition patient was given a total of 2.5 L of normal saline. Patient states that she would like to go home vs observation for further hydration. Pt tolerating oral intake in room. Patient was discharged appearing well after discussing the case with attending provider Dr. Lanza. - Lab Data Result diagrams: 07/27/18 14:08 07/27/18 14:08 Lab Results 07/27/18 07/27/18 07/27/18 Range/Units 14:08 14:08 15:50 WBC 16.6 H (3.8-10.6) k/uL RBC 4.34 (3.80-5.40) m/uL Hgb 13.2 (11.4-16.0) gm/dL Hct 37.6 (34.0-46.0) % MCV 86.8 (80.0-100.0) fL MCH 30.5 (25.0-35.0) pg MCHC 35.1 (31.0-37.0) g/dL RDW 12.3 (11.5-15.5) % Plt Count 418 (150-450) k/uL Neutrophils % 89 % Lymphocytes % 6 % Monocytes % 3 % Eosinophils % 0 % Basophils % 0 % Neutrophils # 14.8 H (1.3-7.7) k/uL Lymphocytes # 1.1 (1.0-4.8) k/uL Monocytes # 0.6 (0-1.0) k/uL Eosinophils # 0.0 (0-0.7) k/uL Basophils # 0.0 (0-0.2) k/uL Sodium 140 (137-145) mmol/L Potassium 3.9 (3.5-5.1) mmol/L Chloride 105 (98-107) mmol/L Carbon Dioxide 23 (22-30) mmol/L Anion Gap 12 mmol/L BUN 7 (7-17) mg/dL Creatinine 0.48 L (0.52-1.04) mg/dL Est GFR (CKD-EPI)AfAm >90 (>60 ml/min/1.73 sqM) Est GFR (CKD-EPI)NonAf >90 (>60 ml/min/1.73 sqM) Glucose 97 (74-99) mg/dL Calcium 11.0 H (8.4-10.2) mg/dL Total Bilirubin 0.9 (0.2-1.3) mg/dL AST 15 (14-36) U/L ALT 16 (9-52) U/L Alkaline Phosphatase 51 (38-126) U/L Total Protein 7.8 (6.3-8.2) g/dL Albumin 4.8 (3.5-5.0) g/dL Urine Color Yellow Urine Appearance Cloudy H (Clear) Urine pH 7.5 (5.0-8.0) Ur Specific [place] 1.028 (1.001-1.035) Urine Protein 1+ H (Negative) Urine Glucose (UA) Negative (Negative) Urine Ketones 4+ H (Negative) Urine Blood Negative (Negative) Urine Nitrite Negative (Negative) Urine Bilirubin Negative (Negative) Urine Urobilinogen <2.0 (<2.0) mg/dL Ur Leukocyte Esterase Trace H (Negative) Urine RBC 2 (0-5) /hpf Urine WBC 5 (0-5) /hpf Ur Squamous Epith Cells 8 H (0-4) /hpf Urine Bacteria Rare H (None) /hpf Urine Mucus Few H (None) /hpf Disposition Clinical Impression: Vomiting , Urine ketones Disposition: HOME SELF-CARE Condition: Good Instructions (If sedation given, give patient instructions): Hyperemesis Grav idarum (ED) Additional Instructions: Please use medication as discussed. Please follow-up with OBGYN Monday as scheduled. Please return to emergency room if the symptoms increase or worsen or for any other concerns. Is patient prescribed a controlled substance at d/c from ED?: No Referrals: None,Stated [Primary Care Provider] - 1-2 days Ami Vallejo MD [STAFF PHYSICIAN] - 1-2 days Time of Disposition: 16:54
[2018-07-27] MEDS ORDERED: ONDANSETRON 4 MG/2 ML VIAL IVP STA (15:59)
[2018-07-27 16:03] LABS: Appearance,Urine Cloudy (Clear); Bacteria,Urine Rare /hpf; Bilirubin,Urine Negative (Negative); Blood,Urine Negative (Negative); Color,Urine Yellow; Glucose,Urine (UA) Negative (Negative); Ketones,Urine 4+ (Negative); Leukocyte Esterase,Urine Trace (Negative); Mucus,Urine Few /hpf; Nitrite,Urine Negative (Negative); PH, Urine 7.5 (5.0-8.0); Protein,Urine 1+ (Negative); RBC,Urine 2 /hpf (0-5); Specific Gravity,Urine 1.028 (1.001-1.035); Squamous Epithelial Cell,Urine 8 /hpf (0-4); Urobilinogen,Urine <2.0 mg/dL (<2.0); WBC,Urine 5 /hpf (0-5)
[2018-07-27 18:18] VITALS: BP 107/72; PULSE 87; RESP 20; TEMP 98
== END 2018-07-27 18:17 | disposition home or self-care (01) ==
LOC: EC 13:24
DX: O21.9 Vomiting of pregnancy, unspecified (principal); O99.89 Other specified diseases and conditions complicating pregnancy, childbirth and the puerperium; R82.4 Acetonuria; Z3A.14 14 weeks gestation of pregnancy
CPT/HCPCS: 36415; 80053; 85025; 81001; 87086; 99284; 96374; 96375 ×2; 96361 ×3; J3415; J2765; J2405

== ENCOUNTER 2019-01-09 12:57 | Inpatient (IN) | payer BC, OTHER ==
[2019-01-09 13:42] VITALS: BMI 26.6
[2019-01-09] MEDS ORDERED: TERBUTALINE 1 MG/ML VIAL SQ PRN (13:42)
[2019-01-09] MEDS ORDERED: OXYTOCIN 10 UNIT/ML 1 ML VIAL IM PRN (13:42)
[2019-01-09] MEDS ORDERED: LIDOCAINE 0.5% (PF) 5 MG/ML (50 ML SDV) SQ PRN (13:42)
[2019-01-09] MEDS ORDERED: CARBOPROST TROMETHAMINE 250 MCG/ML 1 ML AMP IM PRN (13:42)
[2019-01-09] MEDS ORDERED: METHYLERGONOVINE 0.2 MG/ML 1 ML AMP IM PRN (13:42)
[2019-01-09] MEDS ORDERED: OXYTOCIN 30 UNITS/500 ML NS 30 UNIT in SALINE 1 500ML.BAG IV SCH (13:45)
[2019-01-09 13:54] LABS: Basophils # (A) 0.1 k/uL (0-0.2); Basophils % (A) 1 %; Eosinophils # (A) 0.1 k/uL (0-0.7); Eosinophils % (A) 1 %; HCT 31.7 % (34.0-46.0); HGB 11.1 gm/dL (11.4-16.0); Lymphocytes # (A) 1.6 k/uL (1.0-4.8); Lymphocytes % (A) 7 %; MCH 30.6 pg (25.0-35.0); MCHC 35.1 g/dL (31.0-37.0); MCV 87.2 fL (80.0-100.0); Mean Platelet Volume 5.3; Monocytes # (A) 0.7 k/uL (0-1.0); Monocytes % (A) 3 %; Neutrophils # (A) 19.7 k/uL (1.3-7.7); Neutrophils % (A) 88 %; Platelet Count 525 k/uL (150-450); RBC 3.63 m/uL (3.80-5.40); RDW 12.5 % (11.5-15.5); WBC 22.5 k/uL (3.8-10.6)
[2019-01-09] MEDS: LACTATED RINGERS 1,000 ML IV SCH ×2 (14:16→15:09)
[2019-01-09] MEDS ORDERED: fentaNYL (PF) 50 MCG/ML 5 ML AMP ONE (14:49)
[2019-01-09] MEDS ORDERED: SODIUM CHLORIDE 0.9% 100 ML BAG ONE (14:49)
[2019-01-09] MEDS ORDERED: ROPIVACAINE 5MG/ML 20ML VIAL ONE (14:49)
[2019-01-09] MEDS ORDERED: BENZOCAINE/MENTHOL SPRAY 1 GM/SPRAY AEROSOL TOPICAL PRN ×2 (16:47→17:15)
[2019-01-09] MEDS ORDERED: ACETAMINOPHEN TAB 325 MG TAB PO PRN ×2 (16:47→17:15)
[2019-01-09] MEDS ORDERED: SIMETHICONE 80 MG CHEWABLE PO PRN ×2 (16:47→17:15)
[2019-01-09] MEDS ORDERED: HYDROCORTISONE 2.5% RECTAL CREAM 30 GM TUBE RECTAL PRN ×2 (16:47→17:15)
[2019-01-09] MEDS ORDERED: diphenhydrAMINE 25 MG CAP PO PRN ×2 (16:47→17:15)
[2019-01-09] MEDS ORDERED: diphenhydrAMINE 50 MG/ML 1 ML VIAL IVP PRN ×4 (16:47→17:15)
[2019-01-09] MEDS ORDERED: diphenhydrAMINE 50 MG CAP PO PRN ×2 (16:47→17:15)
[2019-01-09] MEDS ORDERED: ZOLPIDEM 5 MG TAB PO PRN ×2 (16:47→17:15)
[2019-01-09] MEDS ORDERED: WITCH HAZEL 1 EACH MED..PAD TOPICAL PRN ×2 (16:47→17:15)
[2019-01-09] MEDS ORDERED: OXYTOCIN 20 UNITS/1000 ML NS 1,000 ML IV SCH ×2 (17:00→17:15)
--- NOTE | 2019-01-09 17:13 | P.HPOB ---
History of Present Illness H&P Date: 01/09/19 This is a 28-year-old white female 1 para 0 EDC 01/25/2019 at 37-5/7 weeks' gestation. Patient presented with spontaneous labor which began at home, spontaneous rupture membranes at noon, clear fluid. Fetus is been active throughout the . She denied vaginal bleeding. Past history is significant for hyperemesis in the first trimester. Past surgical history wisdom teeth extracted 2014. Current medications Zofran 4 mg daily as needed, vitamin daily. ALLERGIES none known. Family history significant for hypertension. Social history patient is single, boyfriend is involved in the , she works at a local [employer]. She has never been a smoker, denies drug use, social alcohol only, none with . history blood type is O-, broke and received. Pap smear negative, rubella status immune. VDRL testing, urine culture, hepatitis B surface a ntigen, HIV testing, gonorrhea and chlamydia cultures, group B strep cultures all negative. One-hour Glucola 97. On exam this is a pleasant white female who is 5 foot 4 inches, 155 pounds, blood pressure 115/62 on admission. Vital signs are otherwise stable and she is afebrile. Examination on admission was consistent with vertex presentation, 5 cm dilation, 80-90% effaced, -2 station, obvious ruptured membranes. heart rate consistent with reactive NST. Impression: 37-5/7 weeks intrauterine , active spontaneous labor. All signs reassuring. Plan: Epidural may be placed per patient's wishes. Continue close maternal and surveillance. Anticipate normal spontaneous vaginal delivery. Review of Systems Constitutional: Reports as per HPI Past Medical History Past Medical History: No Reported History History of Any Multi-Drug Resistant Organisms: None Reported Past Surgical History: No Surgical Hx Reported Past Anesthesia/Blood Transfusion Reactions: No Reported Reaction Past Psychological History: No Psychological Hx Reported Smoking Status: Never smoker Past Alcohol Use History: None Reported Past Drug Use History: None Reported Medications and Allergies Home Medications Medication Instructions Recorded Confirmed Type Ondansetron Odt [Zofran Odt] 4 mg PO Q8HR PRN #14 tab 06/10/18 01/09/19 Rx Allergies Allergy/AdvReac Type Severity Reaction Status Date / Time No Known Allergies Allergy Verified 01/09/19 13:05 Exam Vital Signs Temp Pulse Resp BP Pulse Ox 01/09/19 16:53 85 16 112/75 01/09/19 16:38 93 16 114/75 01/09/19 16:23 100 18 108/55 01/09/19 14:05 97.3 F L 113 H 16 115/62 98 01/09/19 13:36 98.1 F 85 16 113/66 100 01/09/19 13:25 97.3 F L 113 H 16 115/62 98 Intake and Output 01/09/19 01/09/19 01/09/19 06:59 14:59 22:59 Intake Total 500 2000 Output Total 300 Balance 500 1700 Intake: IV 2000 Intake, IV Titration 500 Amount Lactated Ringers 1,000 ml 500 @ 125 mls/hr IV .Q8H HUMAIRA Rx#:[id number] Output: Estimated Blood Loss 300 Other: # Voids 0 Weight 70.307 kg See dictation under HPI please Results Result Diagrams: 01/09/19 13:35 Abnormal Lab Results - Last 24 Hours (Table) 01/09/19 Range/Units 13:35 WBC 22.5 H (3.8-10.6) k/uL RBC 3.63 L (3.80-5.40) m/uL Hgb 11.1 L (11.4-16.0) gm/dL Hct 31.7 L (34.0-46.0) % Plt Count 525 H (150-450) k/uL Neutrophils # 19.7 H (1.3-7.7) k/uL Assessment and Plan Assessment: 37-5/7 weeks intrauterine , active spontaneous labor. All signs reassuring. Plan: Continue close maternal and surveillance. Epidural may be placed per patient's wishes. Anticipate normal spontaneous vaginal delivery. Time with Patient: Less than 30
[2019-01-09] MEDS ORDERED: LANOLIN CREAM 5 GM TUBE TOPICAL PRN (17:15)
[2019-01-09] MEDS ORDERED: IBUPROFEN 600 MG TAB PO PRN (17:15)
--- NOTE | 2019-01-09 17:15 | P.PROBDLV ---
Vaginal Delivery Note - . Vaginal Delivery Note: This is a 28-year-old white female 1 para 0 EDC 01/25/2019 at 37-5/7 weeks' gestation. Patient presented from home with spontaneous amniorrhexis, clear fluid, and regular uterine contractions in active labor. remarkable for group B strep cultures negative, blood type O-, rubella status immune. Please see my dictated history and physical for details. On admission patient was 5 cm dilated. heart rate reassuring. Oxytocin was not necessary. An epidural was placed per her request. She progressed very well through the first stage of labor was judged to be completely dilated at 1551 hrs. Perineal body was prepped and draped in usual sterile fashion and the second stage of labor commenced. With excellent maternal expulsive efforts the head delivered occiput anterior and restituted accordingly. There was a nuchal cord 1 that was easily reduced. The left or anterior shoulder was delivered from underneath the pubic symphysis at which time the oropharynx, nasopharynx, and external nares were all bulb suctioned on the perineal body. Patient was officially delivered of a liveborn female at 1606 hrs. The umbilical cord was doubly clamped and ligated, she was handed to waiting nurses for evaluation where scores of 9 and 9 at one and 5 minutes respectively were given. weight 2855 g or 6 pounds 4.7 ounces. Placenta delivered spontaneously, it was inspected and noted to be intact with trivascular cord minutes afterwards. Careful inspection of the cervix, vagina, periurethral, perirectal areas revealed 2 small first-degree perineal lacerations on the inside of each labia minora. Each of these was given up single [id number] suture of 3-0 Vicryl for excellent reapproximation. Fundus is firm in the midline, symmetric and 18 week size upon completion of delivery. Patient and her are allowed to begin the bonding experience in the LDR.
[2019-01-09] MEDS ORDERED: SENNOSIDES-DOCUSATE SODIUM 1 EACH TAB PO SCH (20:00)
[2019-01-09] MEDS: IBUPROFEN 600 MG TAB PO PRN (21:51)
[2019-01-09] MEDS: SENNOSIDES-DOCUSATE SODIUM 1 EACH TAB PO SCH (22:35)
[2019-01-10] MEDS: IBUPROFEN 600 MG TAB PO PRN ×2 (04:20→12:18)
[2019-01-10 07:04] LABS: Basophils # (A) 0.1 k/uL (0-0.2); Basophils % (A) 0 %; Eosinophils # (A) 0.1 k/uL (0-0.7); Eosinophils % (A) 1 %; HCT 27.7 % (34.0-46.0); HGB 9.9 gm/dL (11.4-16.0); Lymphocytes # (A) 2.4 k/uL (1.0-4.8); Lymphocytes % (A) 10 %; MCH 31.6 pg (25.0-35.0); MCHC 35.6 g/dL (31.0-37.0); MCV 88.5 fL (80.0-100.0); Mean Platelet Volume 5.6; Monocytes # (A) 0.9 k/uL (0-1.0); Monocytes % (A) 4 %; Neutrophils # (A) 19.3 k/uL (1.3-7.7); Neutrophils % (A) 84 %; Platelet Count 491 k/uL (150-450); RBC 3.13 m/uL (3.80-5.40); RDW 12.7 % (11.5-15.5); WBC 22.9 k/uL (3.8-10.6)
--- NOTE | 2019-01-10 07:45 | P.DS ---
Providers Date of admission: 01/09/19 13:22 Expected date of discharge: 01/10/19 Attending physician: Ami Vallejo Primary care physician: Stated None Hospital Course: This is a 28-year-old white female 1 para 0 EDC 01/25/2019 at 37-5/7 weeks' gestation. Patient presented in regular strong active labor from home, with spontaneous amniorrhexis, clear fluid. is significant for blood type O negative, rubella status immune, group B strep cultures negative. Please see dictated history and physical for details. Epidural was placed per her request. She went on to swiftly deliver a liveborn female infant with scores of 9 and 9 at one and 5 minutes respectively. There was a nuchal cord 1 that was reduced, and estimated blood loss of 300 mL, and a small first-degree perineal laceration easily repaired with 3-0 Vicryl. Infant weighed 2855 g or 6 pounds 4.7 ounces. Please see my dictated delivery note for details. This morning the patient is doing well. She is voiding, ambulating, passing flatus without difficulty. Vital signs are stable and she is afebrile. is doing well. Patient is bottle feeding. Lochia rubra is minimal to moderate. Pain is well-controlled. Fundus is firm, midline, symmetric, 18 week size. Extremities are negative for edema. Patient is well rested and judged to be in excellent condition for discharge home. She will follow-up with me in the office in 6 weeks. I have reminded her no intercourse, tampons or douching. She will use [id number] products, Advil or Aleve, or Motrin as needed for pain. I've reviewed with her contraceptive options and we will discuss this further in the office. will follow-up with isotope technician as per recommendations. Patient Condition at Discharge: Good Plan - Discharge Summary Discharge Rx Participant: No New Discharge Prescriptions: No Action Ondansetron Odt [Zofran Odt] 4 mg PO Q8HR PRN #14 tab PRN Reason: Nausea Discharge Medication List Ondansetron Odt [Zofran Odt] 4 mg PO Q8HR PRN #14 tab 06/10/18 [Rx] Follow up Appointment(s)/Referral(s): Ami Vallejo MD [STAFF PHYSICIAN] - 6 Weeks Discharge Disposition: HOME SELF-CARE
[2019-01-10] MEDS: SENNOSIDES-DOCUSATE SODIUM 1 EACH TAB PO SCH (08:21)
[2019-01-10 16:42] VITALS: BP 107/72; PULSE 78; RESP 16; TEMP 98
== END 2019-01-10 16:55 | disposition home or self-care (01) | DRG 807 ==
LOC: FBPOP 12:57 → 4FBP 13:22
PROVIDERS: ADMIT Obstetrics & Gynecology; ATTEND Obstetrics & Gynecology
PROC: 10E0XZZ Delivery of Products of Conception, External Approach (ICD-10-PCS; principal; 2019-01-09)
PROC: 0HQ9XZZ Repair Perineum Skin, External Approach (ICD-10-PCS; 2019-01-09)
PROC: 00HU33Z Insertion of Infusion Device into Spinal Canal, Percutaneous Approach (ICD-10-PCS; 2019-01-09)
PROC: 3E0R3BZ Introduction of Anesthetic Agent into Spinal Canal, Percutaneous Approach (ICD-10-PCS; 2019-01-09)
DX: O69.81X0 Labor and delivery complicated by cord around neck, without compression, not applicable or unspecified (principal); Z37.0 Single live birth; O70.0 First degree perineal laceration during delivery; Z3A.37 37 weeks gestation of pregnancy; Z82.49 Family history of ischemic heart disease and other diseases of the circulatory system
CPT/HCPCS: 59025; 84112; 85025; 86850; 86870; 86880; 86900; 86901; 99213

== ENCOUNTER 2021-10-13 15:29 | Emergency (ER) | payer BC, OTHER ==
[2021-10-13] MEDS ORDERED: SODIUM CHLORIDE 0.9% 2,000 ML IV ONE (15:34)
[2021-10-13 15:45] VITALS: TEMP 98
[2021-10-13 16:29] LABS: Basophils # (A) 0.1 k/uL (0-0.2); Basophils % (A) 1 %; Eosinophils # (A) 0.1 k/uL (0-0.7); Eosinophils % (A) 1 %; HCT 45.3 % (34.0-46.0); HGB 15.5 gm/dL (11.4-16.0); Lymphocytes # (A) 2.3 k/uL (1.0-4.8); Lymphocytes % (A) 17 %; MCH 29.5 pg (25.0-35.0); MCHC 34.3 g/dL (31.0-37.0); Mean Platelet Volume 7.1; Monocytes # (A) 0.7 k/uL (0-1.0); Monocytes % (A) 5 %; Neutrophils # (A) 10.6 k/uL (1.3-7.7); Neutrophils % (A) 76 %; Platelet Count 432 k/uL (150-450); RBC 5.26 m/uL (3.80-5.40); RDW 11.4 % (11.5-15.5); WBC 13.9 k/uL (3.8-10.6)
--- NOTE | 2021-10-13 16:43 | ED ---
General Adult HPI - General Chief complaint: Nausea/Vomiting/Diarrhea Stated complaint: 7 weeks preg, dehydration Time Seen by Provider: 10/13/21 15:33 Source: patient, RN notes reviewed, old records reviewed Mode of arrival: ambulatory Limitations: no limitations - History of Present Illness Initial comments: 31-year-old female presenting for evaluation of nausea vomiting. Patient is presenting from the manager labor relations's office she is approximate 7 weeks . . No abdominal pain or vaginal bleeding. Ultrasound PERFORMED AT THE [facility] PRIOR TO ARRIVAL. SHE WAS SENT OVER FOR IV HYDRATION SECONDARY TO PROFOUND VOMITING RELATED TO THIS . SHE HAS A HISTORY OF HYPEREMESIS GRAVIDARUM WITH HER FIRST . She is currently on Zofran twice a day. She's had decreased urine output. - Related Data Home Medications Medication Instructions Recorded Confirmed Ondansetron Odt [Zofran Odt] 4 mg PO BID PRN 10/08/21 10/08/21 Previous Rx's Medication Instructions Recorded Cephalexin [Keflex] 500 mg PO Q12HR 7 Days #14 cap 10/08/21 Cephalexin [Keflex] 500 mg PO Q12HR 7 Days #14 cap 10/13/21 Allergies Allergy/AdvReac Type Severity Reaction Status Date / Time No Known Allergies Allergy Verified 10/13/21 15:45 Review of Systems ROS Statement: Those systems with pertinent positive or pertinent negative responses have been documented in the HPI. ROS Other: All systems not noted in ROS Statement are negative. Past Medical History Past Medical History: No Reported History History of Any Multi-Drug Resistant Organisms: None Reported Past Surgical History: No Surgical Hx Reported Past Anesthesia/Blood Transfusion Reactions: No Reported Reaction Past Psychological History: No Psychological Hx Reported Smoking Status: Never smoker Past Alcohol Use History: None Reported Past Drug Use History: None Reported General Exam Limitations: no limitations General appearance: alert, in no apparent distress Head exam: Present: atraumatic, normocephalic Eye exam: Present: normal appearance, PERRL ENT exam: Present: mucous membranes dry Neck exam: Present: normal inspection. Absent: tenderness, meningismus Respiratory exam: Present: normal lung sounds bilaterally. Absent: respiratory distress, wheezes Cardiovascular Exam: Present: regular rate, normal rhythm GI/Abdominal exam: Present: soft. Absent: distended, tenderness Neurological exam: Present: alert, oriented X3, CN II-XII intact. Absent: motor sensory deficit Psychiatric exam: Present: normal affect, normal mood Skin exam: Present: warm, dry, intact. Absent: cyanosis, diaphoretic Course Vital Signs 10/13/21 15:43 Temperature 98 F Pulse Rate 87 Respiratory 16 Rate Blood Pressure 111/74 O2 Sat by Pulse 100 Oximetry Medical Decision Making - Medical Decision Making 31-year-old female presenting with significant vomiting associated with . Patient's does appear dehydrated. Basic laboratory testing is obtained, mild leukocytosis likely related to her and vomiting. I do not suspect an infectious cause at this time. Normal electrolytes. Patient requires 3 L in order to urinate while in the emergency department. Urinalysis pos. asymptomatic bacteriuria culture pending started on Keflex. Patient will trial medications prescribed by her manager labor relations Dr. Vallejo. She will attempt to maintain oral hydration. She will have a low threshold to return the emergency Department if she requires additional IV hydration. - Lab Data Result diagrams: 10/13/21 16:21 10/13/21 16:20 Lab Results 10/13/21 10/13/21 10/13/21 Range/Units 15:46 16:20 16:21 WBC 13.9 H (3.8-10.6) k/uL RBC 5.26 (3.80-5.40) m/uL Hgb 15.5 (11.4-16.0) gm/dL Hct 45.3 (34.0-46.0) % MCV 86.0 (80.0-100.0) fL MCH 29.5 (25.0-35.0) pg MCHC 34.3 (31.0-37.0) g/dL RDW 11.4 L (11.5-15.5) % Plt Count 432 (150-450) k/uL MPV 7.1 Neutrophils % 76 % Lymphocytes % 17 % Monocytes % 5 % Eosinophils % 1 % Basophils % 1 % Neutrophils # 10.6 H (1.3-7.7) k/uL Lymphocytes # 2.3 (1.0-4.8) k/uL Monocytes # 0.7 (0-1.0) k/uL Eosinophils # 0.1 (0-0.7) k/uL Basophils # 0.1 (0-0.2) k/uL Sodium 139 (137-145) mmol/L Potassium 3.5 (3.5-5.1) mmol/L Chloride 96 L (98-107) mmol/L Carbon Dioxide 21 L (22-30) mmol/L Anion Gap 22 mmol/L BUN 10 (7-17) mg/dL Creatinine 0.56 (0.52-1.04) mg/dL Est GFR (CKD-EPI)AfAm >90 (>60 ml/min/1.73 sqM) Est GFR (CKD-EPI)NonAf >90 (>60 ml/min/1.73 sqM) Glucose 97 (74-99) mg/dL Calcium 10.9 H (8.4-10.2) mg/dL Urine Color Yellow Urine Appearance Cloudy H (Clear) Urine pH 6.0 (5.0-8.0) Ur Specific [place] 1.019 (1.001-1.035) Urine Protein Trace H (Negative) Urine Glucose (UA) Negative (Negative) Urine Ketones 4+ H (Negative) Urine Blood Trace H (Negative) Urine Nitrite Negative (Negative) Urine Bilirubin Negative (Negative) Urine Urobilinogen <2.0 (<2.0) mg/dL Ur Leukocyte Esterase Large H (Negative) Urine RBC 11 H (0-5) /hpf Urine WBC 43 H (0-5) /hpf Ur Squamous Epith Cells 12 H (0-4) /hpf Urine Bacteria Rare H (None) /hpf Hyaline Casts 3 H (0-2) /lpf Urine Mucus Few H (None) /hpf Urine Yeast (Budding) Occasional H (None) /hpf Disposition Clinical Impression: Hyperemesis gravidarum, Asymptomatic bacteriuria during Disposition: HOME SELF-CARE Condition: Fair Instructions (If sedation given, give patient instructions): Nausea and Vomiting in (ED), Hyperemesis Gravidarum (ED), Urinary Tract Infection in (ED) Prescriptions: Cephalexin [Keflex] 500 mg PO Q12HR 7 Days #14 cap Is patient prescribed a controlled substance at d/c from ED?: No Referrals: Verona Arredondo MD [Primary Care Provider] - 1-2 days Ami Vallejo MD [STAFF PHYSICIAN] - 1-2 days Time of Disposition: 18:51
[2021-10-13 17:01] LABS: African American GFR (CKD) >90 (>60 ml/min/1.73 sqM); Anion Gap 22 mmol/L; Blood Urea Nitrogen 10 mg/dL (7-17); Calcium 10.9 mg/dL (8.4-10.2); Carbon Dioxide 21 mmol/L (22-30); Chloride 96 mmol/L (98-107); Glucose 97 mg/dL (74-99); Non-African American GFR(CKD) >90 (>60 ml/min/1.73 sqM); Potassium 3.5 mmol/L (3.5-5.1); Sodium 139 mmol/L (137-145)
[2021-10-13 18:57] LABS: Appearance,Urine Cloudy (Clear); Bacteria,Urine Rare /hpf; Bilirubin,Urine Negative (Negative); Blood,Urine Trace (Negative); Budding Yeast,Urine Occasional /hpf; Color,Urine Yellow; Glucose,Urine (UA) Negative (Negative); Hyaline Casts,Urine 3 /lpf (0-2); Ketones,Urine 4+ (Negative); Leukocyte Esterase,Urine Large (Negative); Mucus,Urine Few /hpf; Nitrite,Urine Negative (Negative); Protein,Urine Trace (Negative); RBC,Urine 11 /hpf (0-5); Specific Gravity,Urine 1.019 (1.001-1.035); Squamous Epithelial Cell,Urine 12 /hpf (0-4); Urobilinogen,Urine <2.0 mg/dL (<2.0); WBC,Urine 43 /hpf (0-5)
[2021-10-13] MEDS ORDERED: CEPHALEXIN 500 MG CAP PO STA (19:25)
[2021-10-13] MEDS ORDERED: cefTRIAXone IN SWFI 1,000 MG/10 ML SYRINGE IVP STA (19:30)
[2021-10-13 21:03] VITALS: BP 116/71; PULSE 78; RESP 20
== END 2021-10-13 21:03 | disposition home or self-care (01) ==
LOC: EC 15:29
DX: O21.0 Mild hyperemesis gravidarum (principal); O99.891 Other specified diseases and conditions complicating pregnancy; R82.71 Bacteriuria; O99.111 Other diseases of the blood and blood-forming organs and certain disorders involving the immune mechanism complicating pregnancy, first trimester; D72.828 Other elevated white blood cell count; O99.281 Endocrine, nutritional and metabolic diseases complicating pregnancy, first trimester; E86.0 Dehydration; Z3A.01 Less than 8 weeks gestation of pregnancy
CPT/HCPCS: 36415; 80048; 85025; 81001; 87086; 99284; 96374; 96361; J0696

== ENCOUNTER 2021-11-09 10:36 | Outpatient (CLI) | payer BC, OTHER ==
[2021-11-09 11:08] LABS: Basophils % (A) 1 %; Eosinophils # (A) 0.2 k/uL (0-0.7); Eosinophils % (A) 2 %; HCT 36.9 % (34.0-46.0); HGB 12.7 gm/dL (11.4-16.0); Lymphocytes # (A) 1.4 k/uL (1.0-4.8); Lymphocytes % (A) 17 %; MCH 30.3 pg (25.0-35.0); MCHC 34.4 g/dL (31.0-37.0); MCV 88.1 fL (80.0-100.0); Mean Platelet Volume 7.4; Monocytes # (A) 0.4 k/uL (0-1.0); Monocytes % (A) 4 %; Neutrophils # (A) 6.3 k/uL (1.3-7.7); Neutrophils % (A) 75 %; Platelet Count 319 k/uL (150-450); RBC 4.19 m/uL (3.80-5.40); RDW 12.4 % (11.5-15.5); WBC 8.3 k/uL (3.8-10.6)
[2021-11-09] MEDS: LACTATED RINGERS 1,000 ML IV SCH ×2 (11:11→11:35)
[2021-11-09 11:15] LABS: African American GFR (CKD) >90 (>60 ml/min/1.73 sqM); Anion Gap 14 mmol/L; Blood Urea Nitrogen 6 mg/dL (7-17); Calcium 9.9 mg/dL (8.4-10.2); Carbon Dioxide 21 mmol/L (22-30); Chloride 101 mmol/L (98-107); Glucose 86 mg/dL (74-99); Non-African American GFR(CKD) >90 (>60 ml/min/1.73 sqM); Potassium 4.3 mmol/L (3.5-5.1); Sodium 136 mmol/L (137-145)
[2021-11-09 12:22] LABS: Appearance,Urine Cloudy (Clear); Bacteria,Urine Rare /hpf; Bilirubin,Urine Negative (Negative); Blood,Urine Negative (Negative); Color,Urine Light Yellow; Glucose,Urine (UA) Negative (Negative); Ketones,Urine Trace (Negative); Leukocyte Esterase,Urine Moderate (Negative); Mucus,Urine Occasional /hpf; Nitrite,Urine Negative (Negative); Protein,Urine Negative (Negative); RBC,Urine 1 /hpf (0-5); Specific Gravity,Urine 1.006 (1.001-1.035); Squamous Epithelial Cell,Urine 4 /hpf (0-4); Urobilinogen,Urine <2.0 mg/dL (<2.0); WBC,Urine 6 /hpf (0-5)
[2021-11-09 13:02] VITALS: BP 105/70; PULSE 70; RESP 16; TEMP 98.3
[2021-11-09 16:03] LABS: Hepatitis B Surface Antigen Nonreactive (Nonreactive)
[2021-11-14 11:11] LABS: HIV 2 AB Non-Reactive (Non-Reactive); HIV AB P24 Non-Reactive (Non-Reactive); HIV P24 AG Non-Reactive (Non-Reactive)
== END 2021-11-09 12:49 | disposition home or self-care (01) ==
LOC: FBPOP 10:36
PROVIDERS: ATTEND Obstetrics & Gynecology
DX: Z34.81 Encounter for supervision of other normal pregnancy, first trimester (principal)
CPT/HCPCS: 80048; 81001; 85025; 86762; 86850; 86900; 86901; 87340; 87390; 96360; 99214

== ENCOUNTER 2022-05-15 16:18 | Outpatient (CLI) | payer BC, OTHER ==
[2022-05-15 18:15] VITALS: BP 120/64; PULSE 88; RESP 14; TEMP 97.8
--- NOTE | 2022-06-09 12:27 | P.MSEPDOC ---
Presenting Problems - Arrival Data Date of Arrival on Unit: 05/15/22 Time of Arrival on Unit: 16:18 Mode of Transport: Ambulatory - Complaint OB-Reason for Admission/Chief Complaint: Possible Onset of Labor Medical History - Information : 2 Para: 1 Term: 1 : 0 Abortions: Spontaneous or Elective: 0 Number of Living Children: 1 - Gestational Age Gestational Age by ALLIE (wks/days): 38 Weeks and 1 Days Review of Systems - Review of Systems Constitutional: No problems Breast: No problems ENT: No problems Cardiovascular: No problems Respiratory: No problems Gastrointestinal: No problems Genitourinary: No problems Musculoskeletal: No problems Neurological: No problems Skin: No problems Vital Signs - Temperature Temperature: 97.8 F Temperature Source: Temporal Artery Scan - Pulse Right Brachial Pulse Rate: 88 Pulse Assessment Method: Automatic Cuff - Respirations Respiratory Rate: 14 Oxygen Delivery Method: Room Air - Blood Pressure Right Arm Blood Pressure: 120/64 Blood Pressure Mean: 82 Blood Pressure Source: Automatic Cuff Medical Screen Scoring - Cervical Exam Dilation (cm): 3 Effacement (%): 60 Station: -2 Membranes: Intact - Uterine Contractions Frequency From (mins): 2 Frequency To (mins): 4 Duration From (seconds): 30 Duration To (seconds): 50 Intensity: Mild Resting: Soft to palpation - Assessment - Baby A Baseline FHR: 125 Heart Rate - NICHD Category: Category I (Normal) NST: Reactive Physician Notification - Physician Notified Physician Notified Date: 05/15/22 Physician Notified Time: 17:48 Physician: Ayesha Diggs Order Received: Yes - Notification Comment Comment: d/c home Maternal Triage Index - Maternal Triage Index Presenting for scheduled procedure w/no complaint: No - Stat/Priority 1 Stat Priority 1: No - Urgent/Priority 2 Urgent Priority 2: No - Prompt/Priority 3 Prompt Priority 3: No - Non-Urgent/Priority 4 Non-Urgent Priority 4: Yes Criteria Met for Priority 4: contractions Disposition - Disposition OB Disposition: Discharge to home Discharge Date: 05/15/22 Discharge Time: 17:50 I agree with the RN Medical Screening Exam: Yes Physician's MSE Comment: I have neither seen nor examined the patient. Case reviewed; plan agreed upon as documented in EMR&OBIX.: Yes Diagnosis: RELATED CONDITIONS, UNSPECIFIED, THIRD TRIMESTER
== END 2022-05-15 18:00 | disposition home or self-care (01) ==
LOC: FBPOP 16:18
PROVIDERS: ATTEND Obstetrics & Gynecology
DX: O26.893 Other specified pregnancy related conditions, third trimester (principal); Z3A.38 38 weeks gestation of pregnancy
CPT/HCPCS: 59025; 99213

== ENCOUNTER 2022-05-23 06:02 | Inpatient (IN) | payer BC, OTHER ==
[2022-05-23] MEDS ORDERED: TRANEXAMIC ACID IN NACL,ISO-OS 1,000 MG in EMPTY BAG 1 BAG IV PRN (06:23)
[2022-05-23] MEDS ORDERED: TERBUTALINE 1 MG/ML VIAL SQ PRN (06:23)
[2022-05-23] MEDS ORDERED: OXYTOCIN 10 UNIT/ML 1 ML VIAL IM PRN (06:23)
[2022-05-23] MEDS ORDERED: LIDOCAINE 0.5% (PF) 5 MG/ML (50 ML SDV) SQ PRN (06:23)
[2022-05-23] MEDS ORDERED: METHYLERGONOVINE 0.2 MG/ML 1 ML AMP IM PRN (06:23)
[2022-05-23] MEDS ORDERED: miSOPROStoL 200 MCG TAB PO PRN (06:23)
[2022-05-23] MEDS ORDERED: CARBOPROST TROMETHAMINE 250 MCG/ML 1 ML AMP IM PRN (06:23)
[2022-05-23] MEDS: LACTATED RINGERS 1,000 ML IV SCH ×3 (06:30→23:40)
[2022-05-23] MEDS ORDERED: OXYTOCIN 30 UNITS/500 ML NS 30 UNIT in SALINE 1 500ML.BAG IV SCH (06:30)
[2022-05-23 07:10] LABS: Basophils # (A) 0.1 k/uL (0-0.2); Basophils % (A) 1 %; Eosinophils # (A) 0.2 k/uL (0-0.7); Eosinophils % (A) 1 %; HCT 30.3 % (34.0-46.0); Lymphocytes # (A) 2.3 k/uL (1.0-4.8); Lymphocytes % (A) 14 %; MCH 27.3 pg (25.0-35.0); MCHC 33.2 g/dL (31.0-37.0); MCV 82.4 fL (80.0-100.0); Mean Platelet Volume 7.9; Monocytes # (A) 0.6 k/uL (0-1.0); Monocytes % (A) 4 %; Neutrophils # (A) 12.3 k/uL (1.3-7.7); Neutrophils % (A) 77 %; Platelet Count 391 k/uL (150-450); RBC 3.67 m/uL (3.80-5.40); RDW 14.7 % (11.5-15.5)
--- NOTE | 2022-05-23 08:42 | P.HPOB ---
History of Present Illness H&P Date: 05/23/22 Chief Complaint: Here for elective induction of labor with favorable multiparous cervix This is a 31-year-old female 2 para 1001 EDC 05/28/2022 at 39-2/7 weeks' gestation. Patient presents this morning for induction of labor with favorable cervix. She is having mild irregular spontaneous contractions. Fetus is been active throughout the . Past medical history is significant for hyperemesis earlier in the . Past surgical history wisdom teeth extracted 2015. Current medications Zofran as needed, promethazine as needed, vitamin daily. 102. On exam patient is 5 foot 4 inches, 166 pounds, vital signs are stable including an admission blood pressure 115/72. The general physical exam is within normal limits. The cervix is 3-4 cm dilated, 50% effaced, -2 station, vertex presentation. Artificial amniorrhexis reveals clear fluid. heart rate is consistent with reactive NST. Uterine contractions are moderate, occurring e very 2-6 minutes apart. ALLERGIES no known medical ALLERGIES, seasonal ALLERGIES only. Social history patient is single, father of the baby is present and involved. 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 She denies alcohol tobacco or drug use. history is significant for blood type O-, rubella status immune. VDRL testing, hepatitis B surface antigen, urine culture, group B strep cultures, gonorrhea and chlamydia cultures all negative. One-hour Glucola 102. On exam patient is 5 foot 4 inches, 166 pounds, vital signs are stable including blood pressure 115/72, patient is afebrile. The general physical exam is within normal limits. Extremities reveal no edema. Cervix is 3-4 cm dilated, 50-60% effaced, -2 station, vertex presentation. Artificial amniorrhexis reveals clear fluid. heart rate is consistent with reactive NST with frequent accelerations. Impression: 39-2/7 weeks intrauterine , here for induction of labor, all signs reassuring. Plan: Continue oxytocin per protocol. Continue close maternal and surveillance. Analgesic options reviewed, patient is requesting epidural, anesthesia service is aware. Anticipate normal spontaneous vaginal delivery. Review of Systems Constitutional: Reports as per HPI Past Medical History Past Medical History: No Reported History History of Any Multi-Drug Resistant Organisms: None Reported Past Surgical History: No Surgical Hx Reported Past Anesthesia/Blood Transfusion Reactions: No Reported Reaction Past Psychological History: No Psychological Hx Reported Smoking Status: Never smoker Past Alcohol Use History: None Reported Past Drug Use History: None Reported - Past Family History Mother Family Medical History: No Reported History Medications and Allergies Home Medications Medication Instructions Recorded Confirmed Type Doxylamine Succinate/Vit B6 1 tab PO HS 03/28/22 05/23/22 History [Doxylamine-Pyridoxine 10-10 mg] Allergies Allergy/AdvReac Type Severity Reaction Status Date / Time No Known Allergies Allergy Verified 05/23/22 06:22 Exam Vital Signs Temp Pulse Resp BP Pulse Ox 05/23/22 06:22 97.0 F L 90 18 115/72 97 Intake and Output 05/22/22 05/23/22 05/23/22 22:59 06:59 14:59 Other: Weight 75.296 kg See dictation under HPI please Results Result Diagrams: 05/23/22 06:35 Abnormal Lab Results - Last 24 Hours (Table) 05/23/22 Range/Units 06:35 WBC 16.0 H (3.8-10.6) k/uL RBC 3.67 L (3.80-5.40) m/uL Hgb 10.0 L (11.4-16.0) gm/dL Hct 30.3 L (34.0-46.0) % Neutrophils # 12.3 H (1.3-7.7) k/uL Assessment and Plan Assessment: 39-2/7 weeks intrauterine , here for elective induction of labor, all signs reassuring. Plan: Oxytocin per hospital protocol. Continue close maternal and surveillance. Anticipating normal spontaneous vaginal delivery. Time with Patient: Less than 30
[2022-05-23] MEDS ORDERED: fentaNYL (PF) 50 MCG/ML 5 ML AMP ONE (09:15)
[2022-05-23] MEDS ORDERED: SODIUM CHLORIDE 0.9% 100 ML BAG ONE (09:15)
[2022-05-23] MEDS ORDERED: ROPIVACAINE 5 MG/ML 20 ML AMPULE ONE (09:15)
[2022-05-23] MEDS ORDERED: ROPIVACAINE 100 MG, fentaNYL (PF). 200 MCG in SODIUM CHLORIDE 0.9% 76 ML EPIDURAL ONE (10:18)
[2022-05-23] MEDS ORDERED: ACETAMINOPHEN TAB 325 MG TAB PO PRN (14:59)
[2022-05-23] MEDS ORDERED: BENZOCAINE/MENTHOL SPRAY 1 GM/SPRAY AEROSOL TOPICAL PRN (14:59)
[2022-05-23] MEDS ORDERED: LANOLIN CREAM 5 GM TUBE TOPICAL PRN (14:59)
[2022-05-23] MEDS ORDERED: HYDROCORTISONE 2.5% RECTAL CREAM 30 GM TUBE RECTAL PRN (14:59)
[2022-05-23] MEDS ORDERED: ZOLPIDEM 5 MG TAB PO PRN (14:59)
[2022-05-23] MEDS ORDERED: SIMETHICONE 80 MG CHEWABLE PO PRN (14:59)
[2022-05-23] MEDS ORDERED: diphenhydrAMINE 25 MG CAP PO PRN (14:59)
[2022-05-23] MEDS ORDERED: diphenhydrAMINE 50 MG CAP PO PRN (14:59)
[2022-05-23] MEDS ORDERED: diphenhydrAMINE 50 MG/ML 1 ML VIAL IVP PRN ×2 (14:59)
[2022-05-23] MEDS ORDERED: diphenhydrAMINE ELIXIR 25 MG/10 ML CUP PO PRN (14:59)
--- NOTE | 2022-05-23 14:59 | P.PROBDLV ---
Vaginal Delivery Note - . Vaginal Delivery Note: This is a 31-year-old female 2 para 1001 EDC 05/28/2022 at 39-2/7 weeks' gestation who presented earlier this morning for induction with favorable multiparous cervix. Group B strep cultures are negative, blood type O-. Her bowel status immune. Please see dictated history and physical for details. Artificial amniorrhexis revealed clear fluid. Oxytocin was started and titrated per hospital protocol. Epidural was placed per her request. She progressed we ll through the first stage of labor at all times heart rate appeared healthy and reassuring. Patient became completely dilated at 1433 hrs. and began the second stage of labor at that time. Perineal body was prepped and draped in usual sterile fashion. With excellent maternal expulsive efforts the head delivered occiput anterior and restituted accordingly. There was a nuchal cord 1 that was reduced. The left or anterior shoulder was delivered easily from underneath the pubic symphysis at which time the oropharynx, nasopharynx, and external nares were all bulb suctioned. Patient was officially delivered of a liveborn male at 1442 hours. Umbilical cord was doubly clamped and ligated, he was handed to waiting nurses for evaluation where scores of 9 and 9 at one and 5 minutes respectively were given. Placenta delivered spontaneously, it was inspected and noted to be intact with trivascular cord at 1445 hrs. At this time the perineal body was carefully inspected. Inspection of the cervix, vagina, perineum, periurethral, and perirectal areas revealed a small first-degree midline laceration at 6:00. This was repaired in the usual fashion using 3-0 Rapide. uterus is firm and in the midline, symmetric and 18 week size upon completion of delivery. All sponge needle and enhancement counts are correct. Infant weighs 7 lbs. 15 oz. or 3600 g. Patient is requesting circumcision for her infant son.
[2022-05-23] MEDS: IBUPROFEN 600 MG TAB PO SCH ×2 (15:32→21:31)
[2022-05-23 16:01] VITALS: RESP 16
[2022-05-23] MEDS: SENNOSIDES-DOCUSATE SODIUM 1 EACH TAB PO SCH (21:31)
[2022-05-24] MEDS: IBUPROFEN 600 MG TAB PO SCH ×3 (03:31→17:19)
[2022-05-24] MEDS: SENNOSIDES-DOCUSATE SODIUM 1 EACH TAB PO SCH ×2 (07:46→21:34)
--- NOTE | 2022-05-24 08:08 | P.DS ---
Providers Date of admission: 05/23/22 06:02 Expected date of discharge: 05/24/22 Attending physician: Ami Vallejo Primary care physician: Stated None Hospital Course: This is a 31-year-old female 2 para 1001 who presented at 39-3/7 weeks for induction with favorable multiparous cervix. is unremarkable, group B strep cultures negative. Please see dictated history and physical for details. She underwent artificial amniorrhexis, clear fluid. Oxytocin was started and titrated per protocol. Epidural was placed per her request. She went on to deliver vaginally a liveborn male infant who weighed 7 lbs. 15 oz. or 3600 g. There was a small first-degree perineal laceration easily repaired. Please see dictated delivery note for details. This morning the patient and her are both doing well. Circumcision has been performed. Patient is voiding, ambulating, passing flatus without difficulty. Breast-feeding is going well. She denies any significant pain. Minimal to moderate lochia rubra. She is judged to be in very good condition for discharge home and will follow-up with me in the office in 6 weeks. I have reminded her no intercourse, tampons or douching. We have briefly discussed contraceptive options and we will clarify this in the office. She will use [id number] Advil or Aleve as needed for pain, continue her vitamin daily. She will call with any fevers shakes or chills, foul smelling or copious lochia, with any pain not alleviated by [id number] products, or indeed with any concerns. Assessment: Doing well first day Patient Condition at Discharge: Good Plan - Discharge Summary Discharge Rx Participant: No New Discharge Prescriptions: No Action Doxylamine Succinate/Vit B6 [Doxylamine-Pyridoxine 10-10 mg] 1 tab PO HS Discharge Medication List Doxylamine Succinate/Vit B6 [Doxylamine-Pyridoxine 10-10 mg] 1 tab PO HS 03/28/22 [History] Follow up Appointment(s)/Referral(s): Ami Vallejo MD [STAFF PHYSICIAN] - 6 Weeks Discharge Disposition: HOME SELF-CARE
[2022-05-25] MEDS: IBUPROFEN 600 MG TAB PO SCH ×3 (00:29→09:54)
[2022-05-25 07:57] VITALS: BP 100/65; PULSE 77; TEMP 97.5
[2022-05-25] MEDS: SENNOSIDES-DOCUSATE SODIUM 1 EACH TAB PO SCH (09:47)
== END 2022-05-25 10:45 | disposition home or self-care (01) | DRG 807 ==
LOC: 4FBP 06:02
PROVIDERS: ADMIT Obstetrics & Gynecology; ATTEND Obstetrics & Gynecology
PROC: 10E0XZZ Delivery of Products of Conception, External Approach (ICD-10-PCS; principal; 2022-05-23)
PROC: 0HQ9XZZ Repair Perineum Skin, External Approach (ICD-10-PCS; 2022-05-23)
PROC: 10907ZC Drainage of Amniotic Fluid, Therapeutic from Products of Conception, Via Natural or Artificial Opening (ICD-10-PCS; 2022-05-23)
PROC: 3E033VJ Introduction of Other Hormone into Peripheral Vein, Percutaneous Approach (ICD-10-PCS; 2022-05-23)
DX: O69.81X0 Labor and delivery complicated by cord around neck, without compression, not applicable or unspecified (principal); Z37.0 Single live birth; O70.0 First degree perineal laceration during delivery; Z3A.39 39 weeks gestation of pregnancy
CPT/HCPCS: 85025; 86850; 86900; 86901